=== PATIENT | female | born 1965 | race African-American/Black ===

== ENCOUNTER 2022-01-10 10:12 | Emergency (ER) | payer BC | END 2022-01-10 12:57 | disposition home or self-care (01) | LOC: BURERS 10:12 | DX: S43.401A Unspecified sprain of right shoulder joint, initial encounter (principal); S93.401A Sprain of unspecified ligament of right ankle, initial encounter; E11.9 Type 2 diabetes mellitus without complications; W19.XXXA Unspecified fall, initial encounter ==